=== PATIENT | female | born 1935 | race Caucasian/White ===

== ENCOUNTER → 2016-07-02 | Outpatient (CLI) | payer MEDICARE, OTHER ==
[~2016-07-02] MED LIST: AMLODIPINE BESY10 MG PO; ANTIVERT12.5 MG PO; ASPIRIN PO; AUGMENTIN PO; CIPRO PO; DARVOCET-N 1001 TA1 PO; DARVOCET-N 1001 TAB PO; ECOTRIN81 M1 PO; GLUCOPHAGE XR500 MG PO; GLUCOPHAGE500 MG PO; HYDROCHLOROTH12.5 MG PO; MOTION SICKNESS25 M4 PO; MULTI VITAMIN1 EACH PO; NORVASC; NORVASC PO; NOVOLOG100 U/ML SUBQ; PHENERGAN25 M1 PO; PRAVACHOL20 MG PO; PRAVASTATIN SOD40 MG PO; PRILOSEC PO; PYRIDIUM PO; TOLTERODINE TART4 MG PO; TRIAMCINOLONE A15 G2 EXT; TYLOX 5/500 CAP1 CAP PO; ULTRAM PO; VICODIN 5/1 TAB 5/50 PO; VICODIN 5/500 T1 TAB PO; ZOCOR PO
--- NOTE | ~2016-07-02 | CR63 ---
[facility] A Service of [facility] & [facility] RADIOLOGY TEXT RESULTS PATIENT: MYA CHIANG LOCATION: [facility] : 39 UNIT #: [id number] AGE: [address]: Jami Bernal MD SEX: F ORDER DR: [id number] [facility] [address] [place], [place] [address] [id number] O MR#: [id number] Acc #: [id number] NAME: MYA CHIANG. : 1935 SEX: F STUDY DATE/TIME: 07/02/2016 11:05 UNIT: [facility] ROOM: STUDY DESCRIPTION: CR Chest 2 View Attending Physician: Jami Bernal M.D. Referring Physician: Jami Bernal M.D. Ordering Physician: Jami Bernal M.D. Primary Care Physician: Jami Bernal M.D. MEDICAL IMAGING REPORT This report is preliminary unless electronic signature is present EXAM Chest, 07/02/2016. HISTORY 81-year-old woman; productive cough. Short of air times 1 month. History of congestion and high blood pressure. COMPARISON STUDIES Chest, 02/26/2013. FINDINGS 2-view chest demonstrates normal stable heart size. Aorta is ectatic and somewhat tortuous. Bilateral lungs are clear with no infiltrates. Costophrenic angles are preserved with no effusion. IMPRESSION Stable atherosclerotic aortic dilatation and mild redundancy. No acute chest finding. Dictated by... Linden Alcocer M.D. THIS IS AN ELECTRONICALLY VERIFIED REPORT Linden Alcocer M.D. at 07/03/2016 8:04 AM DONAL/neda TD: 07/02/2016 16:57 JOB #: [id number] MEDICAL IMAGING REPORT Page 1 of 1 COPY
== END | disposition home or self-care (01) ==
LOC: CRAD 10:40
DX: R05 Cough (principal); I70.0 Atherosclerosis of aorta
CPT/HCPCS: 71020

== ENCOUNTER 2016-07-26 16:41 | Emergency (ER) | payer MEDICARE, OTHER ==
--- NOTE | ~2016-07-26 | CR63 ---
[facility] A Service of [facility] & [facility] RADIOLOGY TEXT RESULTS PATIENT: MYA CHIANG LOCATION: [facility] : 37 UNIT #: [id number] AGE: [address]: Greg Alcantar MD SEX: F ORDER DR: [id number] [facility] [address] [place], [place] [address] [id number] P MR#: [id number] Acc #: [id number] NAME: MYA CHIANG : 1935 SEX: F STUDY DATE/TIME: 07/26/2016 14:13 UNIT: [facility] ROOM: STUDY DESCRIPTION: CR Chest 2 View Attending Physician: Greg Alcantar M.D. Ordering Physician: Greg Alcantar M.D. Primary Care Physician: Jami Bernal M.D. MEDICAL IMAGING REPORT This report is preliminary unless electronic signature is present EXAM Chest 2 views dated 07/26/2016 COMPARISON Chest 2 views dated 07/02/2016 HISTORY Shortness of air, left-sided chest pain, dizziness for 3 days. FINDINGS 2 views of the chest were obtained. Postoperative surgical ino are noted in the right mid to lower chest. Correlate with operative note. No significant change is noted in the cardiopulmonary status since last month. No obvious acute superimposed new abnormality. No obvious pleural effusion or pneumothorax. Degenerative changes are in the spine. Dictated by... Flavia Maddox M.D. THIS IS AN ELECTRONICALLY VERIFIED REPORT Flavia Maddox M.D. at 07/27/2016 2:58 PM CPR/susana TD: 07/26/2016 15:22 JOB #: [id number] MEDICAL IMAGING REPORT Page 1 of 1 COPY
--- NOTE | ~2016-07-26 | EKG ---
PATIENT: MYA CHIANG UNIT #: [id number] Ventricular Rate: 80 BPM Atrial Rate: 72 BPM QRS Duration: 72 ms Q-T Interval: 384 ms QTC Calculation(Bezet): 442 ms Calculated R Lynn: -16 degrees Calculated T Lynn: 46 degrees Diagnosis Line: Normal sinus rhythm Diagnosis Line: Nonspecific ST and T wave abnormality Diagnosis Line: Abnormal ECG Diagnosis Line: When compared with ECG of 27-OCT-2015 08:33, Diagnosis Line: Nonspecific T wave abnormality now evident in Diagnosis Line: Lateral leads Diagnosis Line: Confirmed by JAILENE BURTON MD ([id number]) on 07/27/2016 Diagnosis Line: 6:13:39 AM INTERPRETING MD: JOSEPHINE BUSTILLOS
[2016-07-26 14:02] LABS: URINE SOURCE CLEAN CATCH
[2016-07-26 14:06] LABS: URINE APPEARANCE CLEAR; URINE BILIRUBIN NEG (NEG); URINE BLOOD NEG (NEG); URINE COLOR YELLOW; URINE GLUCOSE NEG (NEG); URINE KETONE NEG (NEG); URINE LEUKOCYTE ESTERASE NEG (NEG); URINE NITRATE NEG (NEG); URINE PH 6.5 (5-8); URINE PROTEIN NEG (NEG); URINE SPECIFIC GRAVITY 1.002 (1.003-1.035); URINE UROBILINOGEN 0.2 MG/DL (NEG)
[2016-07-26 14:23] LABS: POC - CKMB <1.0 ng/mL (0.0-7.9); POC - TROPONIN <0.05 ng/mL (<=0.05)
[2016-07-26 14:26] LABS: BASOPHIL% 0.8 % (0-2.5); EOSINOPHIL# 0.3 X10e3 (0-0.7); EOSINOPHIL% 4.8 % (0.0-7.0); HEMATOCRIT 46.3 % (35.0-45.0); HEMOGLOBIN 15.2 gm/dL (12.0-16.0); LYMPHOCYTE% 33.4 % (17.0-45.0); MEAN CELL VOLUME 90.7 FL (83-96); MEAN CORPUSCULAR HEMOGLOBIN 29.8 PG (28-34); MEAN CORPUSCULAR HGB CONC 32.9 g/dL (30-36); MEAN PLATELET VOLUME 9.1 FL (6.5-11.5); MONOCYTE# 0.7 X10e3 (0-1.0); MONOCYTE% 10.9 % (3.0-12.0); NEUTROPHIL% 50.1 % (40-75); PLATELET COUNT 192 X10e3 (140-420); RED CELL DISTRIBUTION WIDTH 14.8 % (11.0-15.5)
[2016-07-26 14:31] LABS: DIFF IND NO
[2016-07-26 14:45] LABS: BUN/CREATININE RATIO 17.5; CALCIUM SERUM 10.3 mg/dL (8.4-10.2); CREATININE SERUM 0.8 mg/dL (0.6-1.4); GLOM FILT RATE Estimated 70.2 mL/min (>60); POTASSIUM 4.4 mmol/L (3.5-5.1)
[2016-07-26 15:56] LABS: POC - CKMB 1.1 ng/mL (0.0-7.9); POC - TROPONIN <0.05 ng/mL (<=0.05)
== END 2016-07-26 18:45 | disposition home or self-care (01) ==
LOC: CED 16:41
PROVIDERS: Emergency Medicine
DX: R07.89 Other chest pain (principal); M54.6 Pain in thoracic spine; E11.9 Type 2 diabetes mellitus without complications; E78.5 Hyperlipidemia, unspecified; I10 Essential (primary) hypertension
CPT/HCPCS: 36415; 71020; 80048; 81003; 82553; 82947; 84484; 85025; 85379; 93005; 96374; 99283; J1885

== ENCOUNTER → 2016-11-12 | Outpatient (CLI) | payer MEDICARE, OTHER ==
--- NOTE | ~2016-11-12 | MY29 ---
[facility] A Service of [facility] & [facility] RADIOLOGY TEXT RESULTS PATIENT: MYA CHIANG LOCATION: [facility] : 37 UNIT #: [id number] AGE: [address]: Jami Bernal MD SEX: F ORDER DR: [id number] [facility] [address] [place], [place] [address] [id number] O MR#: [id number] Acc #: [id number] NAME: MYA CHIANG : 1935 SEX: F STUDY DATE/TIME: 11/12/2016 11:17 UNIT: [facility] ROOM: STUDY DESCRIPTION: MY [facility] SCREENING W/ CAD BILAT Attending Physician: Jami Bernal M.D. Referring Physician: Jami Bernal M.D. Ordering Physician: Jami Bernal M.D. Primary Care Physician: Jami Bernal M.D. MEDICAL IMAGING REPORT This report is preliminary unless electronic signature is present EXAM Screening mammogram, 11/12 INDICATIONS 81-year-old with no current complaints. History of right breast cancer, status post lumpectomy. FINDINGS Digital CC and MLO views of both breasts were obtained. Study is reviewed with an FDA-approved CAD device. Comparison made with 08/11/2014, 01/16/2013, 10/09/2011, and 10/06/2010. Breast parenchyma shows scattered fibroglandular densities. No new masses or suspicious microcalcifications are seen. Lumpectomy bed on the right is stable. There are stable benign calcifications in both breasts. Small nodule near the 6 o'clock position of the left breast in the posterior third is stable and benign. IMPRESSION Benign mammogram. Follow up in one year recommended. Patients over the age of 40 are entered into a reminder system with target due date for the next mammogram. A result letter will also be sent to the patient. BIRADS: 2 Benign Finding Dictated by... Greg Rodríguez Jr., M.D. THIS IS AN ELECTRONICALLY VERIFIED REPORT Greg Rodríguez Jr., M.D. at 11/13/2016 7:20 AM RLK/psc [facility]. [facility] A Service of [facility] RADIOLOGY TEXT RESULTS PATIENT: MYA CHIANG LOCATION: [facility] #: [id number] : 39 UNIT #: [id number] AGE: [address]: Jami Bernal MD SEX: F ORDER DR: TD: 11/12/2016 20:48 JOB #: [id number] MEDICAL IMAGING REPORT Page 1 of 1 COPY
== END | disposition home or self-care (01) ==
LOC: CWCC 10:41
DX: Z12.31 Encounter for screening mammogram for malignant neoplasm of breast (principal); Z85.3 Personal history of malignant neoplasm of breast; Z98.890 Other specified postprocedural states
CPT/HCPCS: G0202